=== PATIENT | male | born 1980 | race African-American/Black ===

== ENCOUNTER 2016-07-12 11:02 | Emergency (ER) | payer OTHER ==
[~2016-07-12] VITALS: Ht 170.2 cm; Wt 83.0 kg
[2016-07-12 11:17] VITALS: BP 109/75
[2016-07-12] MEDS ORDERED: IBUPROFEN 800 MG TAB PO ONE (13:15)
== END 2016-07-12 13:23 | disposition home or self-care (01) ==
LOC: ER 11:13
DX: S83.8X1A Sprain of other specified parts of right knee, initial encounter (principal); W19.XXXA Unspecified fall, initial encounter; Y93.89 Activity, other specified; Y99.8 Other external cause status; Y92.89 Other specified places as the place of occurrence of the external cause
CPT/HCPCS: 73562